=== PATIENT | female | born 1975 | race Hispanic/Latino ===

== ENCOUNTER 2018-08-31 10:05 | Emergency (ER) | payer BC ==
[2018-08-31 10:22] VITALS: BMI 21.6
[2018-08-31 10:29] VITALS: BP 137/92; PULSE 91; RESP 18; TEMP 98; O2SAT 94
--- NOTE | 2018-08-31 10:46 | ED PDOC ---
Arrival/HPI - General Chief Complaint: Alcohol Ingestion Time Seen by Provider: 08/31/18 10:06 - History of Present Illness Narrative History of Present Illness (Text): 08/31/18 10:42 43 f with hx crohns colitis and alcohol abuse presents to the ED for evaluation of alcohol withdrawal. Patient states this morning she began to feel tremulous and nauseous, no headache, no agitation, last drink of alcohol this morning. Patient states "i've never done this before, i'm just looking for detox". Past Medical History - Psychiatric Hx Substance Use: No Family/Social History Family/Social History: Unknown Family HX Smoking Status: Heavy Smoker > 10 Cigarettes Daily Hx Alcohol Use: Yes Frequency of alcohol use: Daily Hx Substance Use: No Physical Exam - Physical Exam Narrative Physical Exam (Text): 08/31/18 10:48 Gen: VS reviewed, alert, well developed, well nourished, nontoxic, mild distress Eye: EOMI, PERRL Neck: no JVD, supple, no adenopathy CV: regular rate, regular rhythm, no rubs,no murmur, S1, S2 Pulm: no distress, clear to auscultation, no wheeze, no rhonchi, breath sounds equal, no rales Abd: soft, nontender, no guarding, no rebound, no rigidity Ext: no edema Skin: good color, no rash, no cyanosis Psych: responds appropriately to questions, normal affect Neuro: oriented x3, CN2-12 intact grossly, motor intact, sensation intact Vital Signs Temp Pulse Resp BP Pulse Ox 08/31/18 10:21 98.0 F 91 H 18 137/92 H 94 L Medical Decision Making ED Course and Treatment: 08/31/18 10:46 AMA: ADMIT NEEDED The patient refuses admission and wishes to leave the Emergency Department against my medical advice. Patient was told that admission to the hospital is necessary and a full explanation of the reasons why was given, and understood by patient. The risks of leaving were explained and include worsening of condition, and permanent disability and from an undiagnosed or untreated condition. The patient accepts these risks, and is in my judgement is competent and capable of understanding the clinical situation and my explanation of the risks of leaving. Patient was given the opportunity to ask questions and change mind. The patient was instructed regarding the best care for the present symptoms, and to follow up with primary care doctor as soon as possible, or return to the Emergency Department at any time for continuing care. Patent was offered full explanation for admission/treatment. Patient does not want to stay or even proceed with diagnostic testing. 08/31/18 10:58 patient eloped from the ED prior to discharge paperwork and papers for detox resources. Disposition/Present on Arrival - Present on Arrival Any Indicators Present on Arrival: No History of DVT/PE: No History of Uncontrolled Diabetes: No Urinary Catheter: No History of Decub. Ulcer: No History Surgical Site Infection Following: None - Disposition Have Diagnosis and Disposition been Completed?: Yes Diagnosis: Alcohol abuse Disposition: AGAINST MEDICAL ADVICE Disposition Time: 10:48 Patient Plan: Discharge Patient Problems: Current Active Problems Problem Status Onset Alcohol abuse Acute Condition: STABLE Discharge Instructions (ExitCare): Alcohol Abuse and Alcoholism (DC) Additional Instructions: return for any problems or concerns. Referrals: [facility] at [facility] [Outside] - Follow up with primary Forms: [employer] (Maltese)
== END 2018-08-31 11:44 | disposition left against medical advice (07) ==
LOC: ED 10:05
DX: F10.10 Alcohol abuse, uncomplicated (principal)